=== PATIENT | male | born 1955 | race African-American/Black ===

== ENCOUNTER 2017-01-23 10:44 | Emergency (ER) | payer SELFPAY ==
[2017-01-23] MEDS ORDERED: IV NORMAL SALINE 1000ML BAG 1,000 ML IV ONE (11:00)
[2017-01-23 11:15] LABS: BASO # 0.1 x10^3/uL (0.0-0.2); BASO % 1 % (0-3); EOS % 5 % (0-3); HEMATOCRIT 44.9 % (39.0-53.0); LYMPH # 1.9 x10^3/uL (1.0-4.8); LYMPH % 42 % (24-48); MEAN CORPUSCULAR HEMOGLOBIN 24 pg (25-35); MEAN CORPUSCULAR HGB CONC 33 g/dL (31-37); MEAN CORPUSCULAR VOLUME 72 fL (79-100); MONO % 15 % (0-9); NEUT % 37 % (31-73); PLATELET COUNT 187 x10^3/uL (140-400); RED BLOOD COUNT 6.23 x10^6/uL (4.30-5.70); RED CELL DISTRIBUTION WIDTH 16.6 % (11.5-14.5); WHITE BLOOD COUNT 4.5 x10^3/uL (4.0-11.0)
[2017-01-23 11:24] LABS: CALCIUM 10.3 mg/dL (8.5-10.1); CREATININE 0.7 mg/dL (0.7-1.3)
[2017-01-23 11:29] LABS: ALBUMIN 4.4 g/dL (3.4-5.0); ALBUMIN/GLOBULIN RATIO 1.1 (1.0-1.7); TOTAL BILIRUBIN 0.9 mg/dL (0.2-1.0); TOTAL PROTEIN 8.5 g/dL (6.4-8.2)
[2017-01-23 13:00] VITALS: BP 161/92
[2017-01-23 13:29] LABS: BILIRUBIN,URINE NEGATIVE (NEG); GLUCOSE,URINE NEGATIVE (NEG); NITRITE,URINE NEGATIVE (NEG); PH,URINE 8.5; PROTEIN,URINE 30 mg/dL (NEG-TRACE)
[2017-01-23 13:34] LABS: RBC,URINE TNTC /HPF (0-2)
[2017-01-23 13:35] LABS: BACTERIA,URINE FEW /HPF (0-FEW); SQUAMOUS EPITHELIAL CELL,UR OCC /LPF
[2017-01-23 13:37] LABS: BARBITURATES NEG (NEG); BENZODIAZEPINES POS (NEG); CANNABINOIDS NEG (NEG); COCAINE POS (NEG); METHADONE NEG (NEG); OPIATES NEG (NEG); PHENCYCLIDINE NEG (NEG)
[2017-01-23] MEDS ORDERED: DIAZ5TAB PO (13:53)
--- NOTE | 2017-01-23 13:54 | PHYS DOC ---
Past Medical History Past Medical History: No Pertinent History Past Surgical History: No Surgical History Alcohol Use: Heavy Drug Use: None Adult General Chief Complaint Chief Complaint: LOWER EXT PAIN HPI HPI Patient is a 61 year old male with history of alcoholism who presents today complaining of left cough spasms radiating to the left upper extremity that began a week ago. Patient denies any known injury. Denies any recent hospitalizations, denies any personal family history of DVTs. Denies any recent long or air travel. Denies any chest pain or shortness of breath. Patient states he drinks heavily every day and would not disclose how much. Review of Systems Review of Systems Constitutional: Denies fever or chills [] Eyes: Denies change in visual acuity, redness, or eye pain [] HENT: Denies nasal congestion or sore throat [] Respiratory: Denies cough or shortness of breath [] Cardiovascular: No additional information not addressed in HPI [] GI: Denies abdominal pain, nausea, vomiting, bloody stools or diarrhea [] : Denies dysuria or hematuria [] Musculoskeletal: Left cough spasms radiating to the left upper extremity. Integument: Denies rash or skin lesions [] Neurologic: Denies headache, focal weakness or sensory changes [] Endocrine: Denies polyuria or polydipsia [] All other systems were reviewed and found to be within normal limits, except as documented in this note. Current Medications Current Medications Current Medications Medications (Trade) Dose Ordered Sig/Kaye Start Time Stop Time Status Last Admin Dose Admin Diazepam (Valium) 5 mg 1X ONCE 01/23/17 11:00 01/23/17 11:01 DC 01/23/17 11:14 5 MG Sodium Chloride 1,000 ml @ 1,000 mls/hr 1X ONCE 01/23/17 11:00 01/23/17 11:59 DC 01/23/17 11:15 1,000 MLS/HR Allergies Allergies Allergies Coded Allergies Type Severity Reaction Last Updated Verified No Known Drug Allergies 01/23/17 No Physical Exam Physical Exam Constitutional: Well developed, well nourished, no acute distress, non-toxic appearance. [] HENT: Normocephalic, atraumatic, bilateral external ears normal, oropharynx moist, no oral exudates, nose normal. [] Eyes: PERRLA, EOMI, conjunctiva normal, no discharge. [] Neck: Normal range of motion, no tenderness, supple, no stridor. [] Cardiovascular:Heart rate regular rhythm, no murmur [] Lungs & Thorax: Bilateral breath sounds clear to auscultation [] Abdomen: Bowel sounds normal, soft, no tenderness, no masses, no pulsatile masses. [] Skin: Warm, dry, no erythema, no rash. [] Back: No tenderness, no CVA tenderness. [] Extremities: Patient has spasms on his left calf. Negative Homans sign. Full range of motion to the left lower extremity. +2 left pedal pulse. Cap refill less than 2 seconds left toes. Neurologic: Alert and oriented X 3, normal motor function, normal sensory function, no focal deficits noted. [] Psychologic: Affect normal, judgement normal, mood normal. [] Current Patient Data Vital Signs Vital Signs Date Time Temp Pulse Resp B/P (MAP) Pulse Ox O2 Delivery O2 Flow Rate FiO2 01/23/17 13:00 83 161/92 (115) 97 Room Air 01/23/17 10:48 98.1 18 98.1 Lab Values Laboratory Tests Test 01/23/17 11:05 01/23/17 13:20 White Blood Count 4.5 x10^3/uL (4.0-11.0) Red Blood Count 6.23 x10^6/uL (4.30-5.70) H Hemoglobin 15.0 g/dL (13.0-17.5) Hematocrit 44.9 % (39.0-53.0) Mean Corpuscular Volume 72 fL (79-100) L Mean Corpuscular Hemoglobin 24 pg (25-35) L Mean Corpuscular Hemoglobin Concent 33 g/dL (31-37) Red Cell Distribution Width 16.6 % (11.5-14.5) H Platelet Count 187 x10^3/uL (140-400) Neutrophils (%) (Auto) 37 % (31-73) Lymphocytes (%) (Auto) 42 % (24-48) Monocytes (%) (Auto) 15 % (0-9) H Eosinophils (%) (Auto) 5 % (0-3) H Basophils (%) (Auto) 1 % (0-3) Neutrophils # (Auto) 1.7 x10^3uL (1.8-7.7) L Lymphocytes # (Auto) 1.9 x10^3/uL (1.0-4.8) Monocytes # (Auto) 0.7 x10^3/uL (0.0-1.1) Eosinophils # (Auto) 0.2 x10^3/uL (0.0-0.7) Basophils # (Auto) 0.1 x10^3/uL (0.0-0.2) Sodium Level 139 mmol/L (136-145) Potassium Level 5.0 mmol/L (3.5-5.1) Chloride Level 101 mmol/L (98-107) Carbon Dioxide Level 34 mmol/L (21-32) H Anion Gap 4 (6-14) L Blood Urea Nitrogen 8 mg/dL (8-26) Creatinine 0.7 mg/dL (0.7-1.3) Estimated GFR (Cockcroft-Gault) 115.0 BUN/Creatinine Ratio 11 (6-20) Glucose Level 131 mg/dL (70-99) H Calcium Level 10.3 mg/dL (8.5-10.1) H Total Bilirubin 0.9 mg/dL (0.2-1.0) Aspartate Amino Transferase (AST) 90 U/L (15-37) H Alanine Aminotransferase (ALT) 51 U/L (16-63) Alkaline Phosphatase 51 U/L (46-116) Total Protein 8.5 g/dL (6.4-8.2) H Albumin 4.4 g/dL (3.4-5.0) Albumin/Globulin Ratio 1.1 (1.0-1.7) Lipase 82 U/L (73-393) Ethyl Alcohol Level < 10 mg/dL (0-10) Urine Collection Type Unknown Urine Color Natalie Urine Clarity Cloudy Urine pH 8.5 Urine Specific [place] 1.025 Urine Protein 30 mg/dL (NEG-TRACE) Urine Glucose (UA) Negative mg/dL (NEG) Urine Ketones (Stick) Negative mg/dL (NEG) Urine Blood Large (NEG) Urine Nitrite Negative (NEG) Urine Bilirubin Negative (NEG) Urine Urobilinogen Dipstick 1.0 mg/dL (0.2 mg/dL) Urine Leukocyte Esterase Small (NEG) Urine RBC Tntc /HPF (0-2) Urine WBC 5-10 /HPF (0-4) Urine Squamous Epithelial Cells Occ /LPF Urine Bacteria Few /HPF (0-FEW) Urine Opiates Screen Neg (NEG) Urine Methadone Screen Neg (NEG) Urine Barbiturates Neg (NEG) Urine Phencyclidine Screen Neg (NEG) Urine Amphetamine/Methamphetamine Neg (NEG) Urine Benzodiazepines Screen Pos (NEG) Urine Cocaine Screen Pos (NEG) Urine Cannabinoids Screen Neg (NEG) Urine Ethyl Alcohol Neg (NEG) Laboratory Tests 01/23/17 11:05 Laboratory Tests 01/23/17 11:05 EKG EKG [] Radiology/Procedures Radiology/Procedures [] Course & Med Decision Making Course & Med Decision Making Pertinent Labs and Imaging studies reviewed. (See chart for details) Patient is in the ED with calf spasms for seven day. No known injury. Negative Homans sign to the left lower extremity. He has history of alcoholism. Patient' s labs are negative for any acute findings, drug screen was noted for cocaine and benzodiazepine. He was given Valium in the ED. Give him a liter of fluid. The spasms have stopped. I talked to him about getting help for his alcoholism. Patient is in denial states he does not need help. He was discharged with instructions to follow-up with a PCP. His blood pressure is in the 160s over 80s. Dragon Disclaimer Dragon Disclaimer This electronic medical record was generated, in whole or in part, using a voice recognition dictation system. Departure Departure Impression: Primary Impression: ETOH abuse Additional Impression: Spasm Disposition: 01 HOME, SELF-CARE Condition: STABLE Referrals: NO PCP (PCP) follow up with your doctor in one week Patient Instructions: Muscle Cramps Additional Instructions: You were seen with spasms to the left lower extremity. Please consider getting help for your alcohol use at [facility]. Your blood pressure was elevated in the emergency room. Follow-up with a primary care doctor for blood pressure monitoring. Try and increase your water intake while you cut back on alcohol detected. Come back to the ED symptoms worsen. Scripts Diazepam (VALIUM) 5 Mg Tablet 5 MG PO TID, #15 TAB Prov: MAGUI BAUTISTA FREDRICK 01/23/17 Problem Qualifiers MAGUI BAUTISTA FREDRICK Jan 23, 2017 13:54
== END 2017-01-23 14:10 | disposition home or self-care (01) ==
LOC: ER 10:44
DX: M79.662 Pain in left lower leg (principal); F10.20 Alcohol dependence, uncomplicated
CPT/HCPCS: 36415; 80053; 80307; 81001; 83690; 85025; 96361; 96374; 99284; G0480; J3360; J7030; G0479